=== PATIENT | female | born 1995 | race Caucasian/White ===

== ENCOUNTER 2023-09-14 07:38 | Inpatient (IN) ==
[2023-09-14] MEDS ORDERED: LIDOCAINE 1% LOCAL 20 ML VIAL INFIL PRN (09:02)
[2023-09-14] MEDS ORDERED: CALCIUM CARBONATE 500 MG CHEWABLE TAB PO PRN (09:02)
[2023-09-14] MEDS: LACTATED RINGER'S 1,000 ML IV PRN (09:25)
[2023-09-14] MEDS: OXYTOCIN 30 UNITS/NSS 30 UNITS/500 ML BAG IV PRN ×2 (09:26→22:44)
[2023-09-14 10:20] LABS: Hematocrit (blood only) 33.7 % (37.0-47.0); Hemoglobin 11.5 g/dl (12.0-16.0); Mean Corpuscular Hemoglobin 29.8 pg (25.0-34.0); Mean Corpuscular Hgb Conc 34.1 g/dL (32.0-36.0); Mean Corpuscular Volume 87.3 fL (80.0-100.0); Mean Platelet Volume 10.7 fL (9.4-12.4); Platelet Count 95 K/uL (130-400); Platelet Estimate Decreased (Normal); RDW Standard Deviation 44.1 fL (36.4-46.3); Red Blood Count 3.86 M/uL (4.20-5.40); White Blood Count 6.89 K/ul (4.8-10.8)
--- NOTE | 2023-09-14 10:58 | History & Physical Report ---
Date of Service September 14, 2023 Assessment & Plan (1) Post-dates : Plan: Intrauterine at 41-2/7 weeks for postterm induction. Cervix is favorable therefore we will begin Pitocin per labor and delivery protocol. Epidural if patient requests. Anticipate vaginal . Admission and Anticipated Discharge Date Admission Date: September 14, 2023 History of Present Illness Primary Care Provider: Jose Meek PA-C Patient is a 28-year-old G1, P0 female who presents at 41-2/7 weeks for induction of labor because of postterm . has otherwise been uncomplicated. GBS is negative-blood type B negative. Allergies Allergy/AdvReac Type Severity Reaction Status Date / Time No Known Allergies Allergy Verified 09/12/23 15:08 Home Medications Medication Instructions Recorded Confirmed Type clindamycin phosphate 1 % lotion 1 applic topical DAILY order 09/04/23 09/14/23 History fexofenadine 60 mg tablet (Anusha 60 mg PO DAILY 09/04/23 09/14/23 History Allergy) bwzoriiu-cev-Mb-FA 1 mg 1 tab PO DAILY 09/04/23 09/14/23 History tablet Patient History Medical History Ovarian cyst Varicella vaccination Surgical History S/P wisdom tooth extraction Family History (Updated 01/18/23 @ 15:07 by Bettye Quintana) Father Diabetes Kidney stone Mother Deep vein thrombosis Grandmother (Maternal) Anemia Denies family history of Ovarian cancer Breast cancer Colorectal cancer Social History (Updated 09/14/23 @ 07:59 by Maral Watkins RN) Smoking Status: Never smoker Do You Dip or Chew Tobacco: No; Hx Alcohol Use: No Hx Substance Use: No Preferred Language: Croatian Communication Ability: Effective Bicycle Inspector Required: No Beliefs That Will Affect Care: None marital status: marital status details: Hung Redmond (25) [phone] Current Living Situation: Spouse Current Living Situation Comment: house current occupational status: employed 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 Other Information That Helps Us Care for You: No Feels Safe at Home: Yes Assistive Devices: None and Glasses Review of Systems All systems reviewed & are unremarkable except as noted in HPI & below Physical Exam Constitutional: WD/WN, vitals as above Psychiatric: A+Ox3, euthymic affect Genitourinary: OB Exam Abdomen: + vertex and + estimated weight (8-9 pounds); no irregular contractions Manual OB Exam: + cervical dilation (2- 3cm), + cervical effacement 80% and + station -1 (posterior) OB Exam Monitor Tracing: + external FHT monitor used, + external uterine monitor used, + category I and + normal FHT variability Results & Data Vital Signs (Past 12 Hours) Vital Signs Temp Pulse Resp BP 09/14/23 10:05 78 110/68 09/14/23 09:27 78 20 111/74 09/14/23 08:05 83 110/69 09/14/23 08:01 98.1 F 20 Code Status & VTE Plan VTE Prophylaxis Plan VTE Prophylaxis will be ordered: No Coding Level of Care Code 67478 INT INP/OBS CARE 1/40MIN Diagnoses Post-term , 40-42 weeks of gestation O48.0 Post-term type: 40-42 weeks gestation (1) Post-dates Post-term type: 40-42 weeks gestation Qualified Code(s): O48.0 - Post-term
[2023-09-14] MEDS: BUPIVACAINE 0.25% PF 30 ML VIAL ONE (16:44)
[2023-09-14] MEDS: fentaNYL citrate PF 100 MCG/2 ML VIAL ONE (16:47)
[2023-09-14] MEDS: LIDOCAINE 2%/EPINEPHRINE 1:200,000 20 ML PF ONE (16:47)
[2023-09-14] MEDS: fentANYL 2 MCG/ML BUPIVacaine 0.125%-NSS 100ML BAG ONE (16:48)
--- NOTE | 2023-09-14 16:55 | Anesthesiology Consultation ---
Date of Service September 14, 2023 Assessment & Plan Chart Review Chart Review: Acceptable Risk for Labor Epidural Consults Requested none History Height/Weight Height: 5 ft 7 in Weight: 77.564 kg Allergies Allergy/AdvReac Type Severity Reaction Status Date / Time No Known Allergies Allergy Verified 09/12/23 15:08 Medications Home Medications Medication Instructions Recorded Confirmed Last Taken clindamycin phosphate 1 % lotion 1 applic topical DAILY order 09/04/23 09/14/23 09/13/23 fexofenadine 60 mg tablet (Anusha 60 mg PO DAILY 09/04/23 09/14/23 09/14/23 Allergy) koxhkhil-oiw-Ux-FA 1 mg 1 tab PO DAILY 09/04/23 09/14/23 09/14/23 tablet Active Medications Generic Name Dose Route Start Last Admin Trade Name Freq PRN Reason Stop Dose Admin Oxytocin 30 units in 500 mls @ 10 mls/hr 09/14/23 09:02 09/14/23 13:30 Pitocin 30 Units/Nss IV 09/16/23 09:01 0.6 units/hr .Q24H PRN 10 mls/hr Labor Induction/Augmentation Titration Protocol 0.6 UNITS/HR Lactated Ringer's 1,000 mls @ 125 mls/hr 09/14/23 09:02 09/14/23 16:08 Lr IV 09/16/23 09:01 999 mls/hr .Q8H PRN Administration L&D Protocol Protocol Past Medical History Medical History Ovarian cyst Varicella vaccination Past Family History Family History (Updated 01/18/23 @ 15:07 by Bettye Quintana) Father Diabetes Kidney stone Mother Deep vein thrombosis Grandmother (Maternal) Anemia Denies family history of Ovarian cancer Breast cancer Colorectal cancer Past Surgical History Surgical History S/P wisdom tooth extraction Social History Smoking Status: Never smoker Do You Dip or Chew Tobacco: No Hx Alcohol Use: No Hx Substance Use: No Physical Exam Vital Signs Last Vital Signs Temp 36.7 C 09/14/23 11:05 Pulse 77 09/14/23 16:52 Resp 18 09/14/23 14:23 BP 115/77 09/14/23 16:52 Pulse Ox 100 07/18/24 16:28 Testing Laboratory Results 09/14/23 09:38
[2023-09-14] MEDS ORDERED: ROPIVACAINE 0.5% PF 5 MG/ML 20 ML VIAL EPI PRN (16:57)
[2023-09-14] MEDS ORDERED: BUPIVACAINE 0.25% PF 30 ML VIAL EPI PRN (16:57)
[2023-09-14] MEDS ORDERED: ePHEDrine sulfate 50 MG/ML AMP IV PRN (16:57)
[2023-09-14] MEDS ORDERED: SODIUM CHLORIDE 0.9% PF INJ 10 ML VIAL EPI PRN (16:57)
[2023-09-14] MEDS ORDERED: diphenhydrAMINE 50 MG/ML VIAL IV PRN (16:57)
[2023-09-14] MEDS ORDERED: fentaNYL citrate PF 100 MCG/2 ML VIAL EPI PRN (16:57)
[2023-09-14] MEDS ORDERED: NALBUPHINE HCL 5 MG in SYRINGE 0 ML IV PRN (16:57)
[2023-09-14] MEDS ORDERED: LIDOCAINE 2% MPF LOCAL 5 ML VIAL EPI PRN (16:57)
[2023-09-14] MEDS ORDERED: NALOXONE HCL 0.4 MG/1 ML VIAL/CARP IV PRN (16:57)
[2023-09-14] MEDS ORDERED: fentANYL 2 MCG/ML BUPIVacaine 0.125%-NSS 100ML BAG EPI PRN (16:57)
[2023-09-14] MEDS ORDERED: NALOXONE HCL 1 MG in SODIUM CHLORIDE 0.9% 1,000 ML IV PRN (16:57)
[2023-09-14] MEDS: ePHEDrine sulfate 50 MG/ML AMP ONE (18:31)
[2023-09-14] MEDS: SODIUM CHLORIDE 0.9% PF INJ 10 ML VIAL ONE (18:31)
[2023-09-14] MEDS: LIDOCAINE 2%/EPINEPHRINE 1:200,000 20 ML PF EPI STA (18:33)
[2023-09-14] MEDS: fentaNYL citrate PF 100 MCG/2 ML VIAL EPI STA (18:33)
[2023-09-14] MEDS: SODIUM CHLORIDE 0.9% PF INJ 10 ML VIAL EPI STA (18:33)
[2023-09-14] MEDS: BUPIVACAINE 0.25% PF 30 ML VIAL EPI STA (18:33)
[2023-09-14] MEDS ORDERED: SODIUM CHLORIDE 0.9% 250 ML IV PRN (19:24)
[2023-09-14] MEDS ORDERED: HYDROCORTISONE ACETATE 25 MG SUPP PR PRN (23:22)
[2023-09-14] MEDS ORDERED: ACETAMINOPHEN 325 MG TAB PO PRN (23:22)
[2023-09-14] MEDS ORDERED: BENZOCAINE 20% SPRY 85 APPLN/85 GM CAN EXT PRN (23:22)
[2023-09-14] MEDS ORDERED: oxyCODONE/ACETAMINOPHEN 5mg/325mg TAB PO PRN (23:22)
[2023-09-14] MEDS ORDERED: OXYTOCIN 30 UNITS/NSS 30 UNITS/500 ML BAG IV PRN (23:22)
--- NOTE | 2023-09-14 23:35 | Delivery Summary ---
Vaginal Delivery Summary Date of Service September 14, 2023 Vaginal Delivery Summary and 2nd Degree LAC Patient is a 28-year-old 1 P0 female presented for postdates induction of labor. Pitocin induction was started per labor and delivery protocol. Membranes ruptured spontaneously for clear fluid. She received effective epidural analgesia. She progressed to full dilation and pushed effectively over intact perineum for delivery of a viable male infant. After the head was d elivered the shoulders delivered easily and he was placed on the mother's abdomen for further attention and drying. He was vigorous crying and moving all 4 limbs. After 1 minute, the cord was clamped and cut. Placenta was then expressed intact with a three-vessel cord. Cord blood was obtained prior to delivering the placenta. bleeding was controlled with dilute Pitocin and fundal massage. Second-degree perineal laceration was repaired with 3-0 chromic in the usual fashion. QBL is 412 mL. Mother and infant doing well after delivery. [facility] [place] Charge Delivery Type Details: and 2nd Degree LAC
[2023-09-15] MEDS: DIPHTHER/TETAN/PERTUS Vaccine (Tdap, Adol/Adult) 0.5mL IM ONE (00:03)
--- NOTE | 2023-09-15 15:44 | Ultrasound Report ---
ULTRASOUND BILATERAL LOWER EXTREMITY VENOUS CLINICAL HISTORY: Leg pain. Dyspnea. COMPARISON STUDY: No priors. TECHNIQUE: Real-time, grayscale, and color Doppler sonography of the deep veins of the right and left lower extremity was performed from the inguinal crease to the calf. Compression and augmentation wer e utilized. FINDINGS: There is no sonographic evidence of deep venous thrombosis identified in the right or left lower extremity. The common femoral, superficial femoral, and popliteal veins are patent and normally compressible bilaterally. The greater saphenous vein and the profunda femoris vein at the junction w ith the common femoral vein are clear in both legs. The visualized calf veins are patent bilaterally. IMPRESSION: There is no sonographic evidence of deep venous thrombosis identified in the right or lef t lower extremity. ACT 112: Negative or not required by law. Electronically signed by: Joe Pendleton M.D. 09/15/2023 3:43 PM
[2023-09-15 16:09] LABS: Hematocrit (blood only) 30.9 % (37.0-47.0); Hemoglobin 10.7 g/dl (12.0-16.0)
--- NOTE | 2023-09-15 16:12 | Electrocardiogram Report ---
Test Reason : Blood Pressure : / mmHG Vent. Rate : 096 BPM Atrial Rate : 096 BPM P-R Int : 150 ms QRS Dur : 070 ms QT Int : 342 ms P-R-T Axes : 062 058 054 degrees QTc Int : 432 ms Normal sinus rhythm with sinus arrhythmia Normal ECG No previous ECGs available Confirmed by Kraig Blackwell ([id number]) on 09/15/2023 4:12:22 PM Referred By: Rosio Gilbert Confirmed By:Kraig Blackwell
[2023-09-15 16:55] LABS: Hematocrit (blood only) 34.5 % (37.0-47.0); Hemoglobin 11.8 g/dl (12.0-16.0)
[2023-09-15] MEDS: IBUPROFEN 600 MG TAB PO PRN (17:01)
[2023-09-15] MEDS ORDERED: PRENATAL VITAMIN 1 TAB PO SCH (17:30)
[2023-09-15] MEDS ORDERED: bisacodyL 5 MG TABEC PO SCH (20:00)
[2023-09-15] MEDS: DOCUSATE SODIUM 100 MG CAP PO SCH (23:23)
[2023-09-15] MEDS: ACETAMINOPHEN 325 MG TAB PO PRN (23:24)
--- NOTE | 2023-09-16 07:50 | Obstetrical Progress Note ---
Date of Service <Brandon Krueger DO - Last Filed: 09/16/23 07:56> September 16, 2023 Assessment & Plan <Brandon Krueger DO - Last Filed: 09/16/23 07:56> (1) Encounter for assessment: Patient is PPD 2 s/p and doing well - Eating well, voiding well, ambulating well - vitals reviewed and within normal limits - pain well controlled with analgesics - SOB yesterday, pulse ox monitored at 98-100 since admission, and dvt doppler studies negative - OOB, ambulation, diet progression as tolerated - Blood type: B-, GBS neg, rubella immune, rhogam administered - Plan to discharge today - After discharge, 6 week follow up with OB visit type: exam and care immediately after delivery Qualified Code(s): Z39.0 - Encounter for care and examination of mother immediately after delivery <Angella Perez MD - Last Filed: 09/18/23 10:29> (1) Encounter for assessment: Subjective <Brandon Krueger DO - Last Filed: 09/16/23 07:56> 28 yo post- day 2 s/p Ambulation: ambulating normally Voiding: no voiding problems Passing Gas:: Yes Diet Tolerance:: regular diet Lochia:: Small Feeding Type:: breast feeding Current Pain Level: 4/10 Resting comfortably this AM in NAD. Denies HOLLIS, CP, SOB, N/V/D, LE pain/swelling. Physical Exam <Brandon Krueger DO - Last Filed: 09/16/23 07:56> General: patient resting comfortably, NAD, non-toxic in appearance, answers questions appropriately. Skin: warm, dry, intact HEENT: NC/AT, anicteric sclera, conjunctiva without injection, moist mucus membranes. Heart: +S1/S2, regular, no m/r/g Lungs: equal air entry bilaterally, no rales/rhonchi/wheezes Abd: +BS, soft, NT/ND, uterine fundus firm at umbilicus Ext: warm, no clubbing/cyanosis or edema, Lyubov's neg. Neuro: nonfocal, speech intact, no facial droop, moving all extremities. Results & Data <Brandon Krueger DO - Last Filed: 09/16/23 07:56> Vital Signs (Past 12 Hours) Vital Signs Temp Pulse Resp BP Pulse Ox O2 Del Method 09/15/23 23:15 36.7 C 85 16 101/68 98 Room Air Supervising Physician <Angella Perez MD - Last Filed: 09/18/23 10:29> Co-Signing Physician Notes Resident Physician Supervision Note: I interviewed and examined the patient. Discussed with Dr. Krueger and agree with findings and plan as documented in the note. Any exceptions or clarifications are listed here: [ ] Documented By: Angella Perez MD, FACOG Resident Activity Tracking <Brandon Krueger DO - Last Filed: 09/16/23 07:56> Resident Involvement: Resident Care Provided Care Provided: OB Delivery
[2023-09-16] MEDS: PRENATAL VITAMIN 1 TAB PO SCH (08:31)
[2023-09-16 12:27] LABS: Hemoglobin 10.4 g/dl (12.0-16.0); Mean Corpuscular Hemoglobin 29.9 pg (25.0-34.0); Mean Corpuscular Hgb Conc 33.5 g/dL (32.0-36.0); Mean Corpuscular Volume 89.1 fL (80.0-100.0); Platelet Count 101 K/uL (130-400); RDW Coefficient of Variation 14.4 % (11.5-14.5); Red Blood Count 3.48 M/uL (4.20-5.40); White Blood Count 8.82 K/ul (4.8-10.8)
[2023-09-16] MEDS ORDERED: bisacodyL 10 MG SUPP PR PRN (23:22)
== END 2023-09-16 14:00 | disposition home or self-care (01) | DRG 807 ==
LOC: 4S1 07:38 → 4E2 09-15 14:57